=== PATIENT | male | born 1955 | race Asian ===

== ENCOUNTER 2018-11-08 10:44 | Emergency (ER) | payer BC ==
[~2018-11-08] VITALS: Ht 170.2 cm; Wt 79.0 kg
[2018-11-08 12:05] VITALS: BP 125/78
== END 2018-11-08 12:05 | disposition home or self-care (01) ==
LOC: ER 10:44
DX: S31.33XA Puncture wound without foreign body of scrotum and testes, initial encounter (principal); M10.9 Gout, unspecified; X58.XXXA Exposure to other specified factors, initial encounter; Y93.89 Activity, other specified; Y92.89 Other specified places as the place of occurrence of the external cause; Y99.8 Other external cause status; Z87.440 Personal history of urinary (tract) infections
CPT/HCPCS: 99283